=== PATIENT | male | born 1955 | race Caucasian/White ===

== ENCOUNTER → 2016-11-20 | Outpatient (REF) ==
[~2016-11-20] MED LIST: ACCURETIC 12.51 TA1 PO; AMBIEN 10MG10 MG PO; ASPIRIN E.C. 8181 MG PO; CELEXA40 MG PO; CEPHALEXIN500 M1 PO; ELIQUIS 5MG PO; FLOMAX 0.40.4 MG/CAP PO; LEVOXYL0.075 MG PO; PLENDIL 5MG TAB5 MG PO; PRAVACHOL 40MG40 MG PO; PROTONIX 40MG T40 MG PO; THE MEDICINE S200 M2 PO; VITAMIND3 5000 PO
== END ==
LOC: WSOH 12:44
DX: Z00.00 Encounter for general adult medical examination without abnormal findings (principal)

== ENCOUNTER → 2017-03-22 | Outpatient (CLI) | payer BC ==
[~2017-03-22] VITALS: Ht 177.8 cm; Wt 98.4 kg
[2017-03-22 13:15] VITALS: BP 138/50
== END ==
LOC: LIGHT 12:58
DX: Z98.84 Bariatric surgery status (principal); Z68.31 Body mass index [BMI] 31.0-31.9, adult; Z71.3 Dietary counseling and surveillance

== ENCOUNTER → 2017-04-07 | Outpatient (REF) | LOC: WSOH 12:45 | DX: Z02.89 Encounter for other administrative examinations (principal) ==